=== PATIENT | male | born 2005 | race Caucasian/White ===

== ENCOUNTER 2024-11-30 09:56 | Emergency (ER) | payer OTHER ==
[~2024-11-30] VITALS: Ht 190.5 cm; Wt 82.5 kg
[2024-11-30 10:02] VITALS: BP_DIAS 75; TEMP 98; O2SAT 98
[2024-11-30] MEDS ORDERED: AMOX875T10 PO (11:48)
[2024-11-30] MEDS ORDERED: IBUP-1986 PO (11:48)
[2024-11-30] MEDS: ketorolac trometh 30MG/ML vial 30 MG/ML VIAL IM STA (11:53)
[2024-11-30 12:05] VITALS: PULSE 64; RESP 16
== END 2024-11-30 12:18 | disposition home or self-care (01) ==
LOC: ER 09:57
DX: K04.7 Periapical abscess without sinus (principal); Z79.1 Long term (current) use of non-steroidal anti-inflammatories (NSAID)
CPT/HCPCS: 96372; 99283; J1885